=== PATIENT | male | born 1925 | race Caucasian/White ===

== ENCOUNTER 2016-11-27 09:33 | Emergency (ER) | payer MEDICARE, OTHER ==
[~2016-11-27] VITALS: Ht 172.7 cm; Wt 70.7 kg
[2016-11-27 09:33] VITALS: BP 148/69
[2016-11-27] MEDS ORDERED: ASPI81TA85 PO (09:52)
[2016-11-27] MEDS ORDERED: TYLE500T78 PO (09:52)
[2016-11-27] MEDS ORDERED: ATOR40TA75 PO (09:52)
[2016-11-27] MEDS ORDERED: MULT1TAB10 PO (09:52)
[2016-11-27] MEDS ORDERED: K-TA10TA2 PO (09:52)
[2016-11-27] MEDS ORDERED: ALLE180T33 PO (09:52)
[2016-11-27] MEDS ORDERED: CLOP75TA2 PO (09:52)
[2016-11-27] MEDS ORDERED: CIAL5TAB PO (09:52)
[2016-11-27] MEDS ORDERED: TETR1CAP2 PO (09:52)
[2016-11-27] MEDS ORDERED: NEXI1CAP4 PO (09:52)
[2016-11-27] MEDS ORDERED: MAGN400C2 PO (09:52)
[2016-11-27] MEDS ORDERED: CHEL50TA PO (09:52)
[2016-11-27] MEDS ORDERED: AMLO5TAB2 PO (09:52)
[2016-11-27] MEDS ORDERED: ATEN50TA2 (09:52)
--- NOTE | 2016-11-27 11:12 | REP ---
Chest x-ray: Two views. History: Dysphagia. Findings: The lungs are symmetrically aerated and free of infiltrate. Minimal interstitial fibrosis pattern is seen. The pleural angles are sharp. There are degenerative changes in the thoracic spine. There is an old healed rib fracture on the right. Two orthopedic anchors are noted in the left glenoid at the shoulder. Impression: No active disease. Signed by Nj De La Fuente MD 11/27/2016 11:19 A
[2016-11-27] MEDS ORDERED: SUCR1SS PO (13:00)
== END 2016-11-27 13:10 | disposition home or self-care (01) ==
LOC: M ED 09:33
DX: K20.9 Esophagitis, unspecified (principal); I10 Essential (primary) hypertension; I25.10 Atherosclerotic heart disease of native coronary artery without angina pectoris; K21.9 Gastro-esophageal reflux disease without esophagitis; Z87.19 Personal history of other diseases of the digestive system; Z87.891 Personal history of nicotine dependence; Z79.899 Other long term (current) drug therapy; Z79.02 Long term (current) use of antithrombotics/antiplatelets; Z79.82 Long term (current) use of aspirin